=== PATIENT | male | born 1975 | race Native Hawaiian/Other Pacific Islander ===

== ENCOUNTER 2020-11-18 05:14 | Emergency (ER) | payer OTHER ==
[~2020-11-18] VITALS: Ht 177.8 cm; Wt 131.5 kg
[2020-11-18 05:25] VITALS: TEMP 98.2
[2020-11-18] MEDS ORDERED: CIPR500T PO (05:41)
[2020-11-18] MEDS ORDERED: METR250T19 PO (05:42)
[2020-11-18 06:15] LABS: PLATELET COUNT 209 K/uL (142-355)
[2020-11-18 06:23] LABS: POTASSIUM 3.9 mmol/L (3.6-5.2)
[2020-11-18 09:03] VITALS: BP 144/86
== END 2020-11-18 09:03 | disposition still patient (30) ==
LOC: ED 05:14
PROVIDERS: Hospitalist
DX: R10.32 Left lower quadrant pain (principal); K57.32 Diverticulitis of large intestine without perforation or abscess without bleeding; Z79.2 Long term (current) use of antibiotics
CPT/HCPCS: 36415; 80053; 83690; 85027; 96360; 96374; 96375; 99284; J1170; J1885; J2405; Q9963